=== PATIENT | male | born 1960 | race Caucasian/White ===

== ENCOUNTER 2016-12-10 11:57 | Emergency (ER) | payer OTHER ==
[~2016-12-10] VITALS: Ht 185.4 cm; Wt 111.6 kg
[2016-12-10 12:10] VITALS: BP 118/83
[2016-12-10] MEDS ORDERED: MOTRIN600 MG PO (13:40)
== END 2016-12-10 13:50 | disposition home or self-care (01) ==
LOC: EME 11:57
DX: S83.92XA Sprain of unspecified site of left knee, initial encounter (principal); W01.0XXA Fall on same level from slipping, tripping and stumbling without subsequent striking against object, initial encounter
CPT/HCPCS: 73564; 99281; 99283

== ENCOUNTER 2017-08-05 16:32 | Emergency (ER) | payer OTHER ==
[~2017-08-05] VITALS: Ht 185.4 cm; Wt 113.1 kg
[~2017-08-05 16:32] MED LIST: MOTRIN600 MG PO
[2017-08-05 18:31] VITALS: BP 143/85
== END 2017-08-05 18:32 | disposition home or self-care (01) ==
LOC: EME 16:32
DX: Z48.02 Encounter for removal of sutures (principal)
CPT/HCPCS: 99281; 99283